=== PATIENT | female | born 1990 ===

== ENCOUNTER 2024-06-21 14:46 | Outpatient (CLI) | payer OTHER, SELFPAY ==
--- NOTE | ~2024-06-21 | US_ITS ---
EXAMINATION: US pelvic complete INDICATION: Missing IUD strings Comparison:No prior studies for comparison. TECHNIQUE: Multiple transabdominal sonographic images of the pelvis performed. FINDINGS: The uterus measures 7.1 x 2.6 x 4.5 cm. The endometrial complex measures 0.55 cm. IUD is pr esent in the endometrium. The right ovary measures 2.3 x 1.6 x 2.4 cm and the left ovary measures 2.4 x 3.7 x 2.0 cm. There is a left ovarian cyst measuring 2.1 cm. There are small follicles in each ovary. Normal doppler signal in both ovaries. There is no free fluid in the pelvis. There are no abnormal masses seen on either side. IMPRESSION: 1. IUD present in the endometrium. 2: Left ovarian cyst measuring 2.1 cm. Reviewed, dictated and finalized at location B. INSPECTOR
== END 2024-06-21 14:47 | disposition home or self-care (01) ==
LOC: MICIMG 14:48
PROVIDERS: PCP Advanced Practice Midwife; Visit Provider Advanced Practice Midwife
DX: T83.32XA Displacement of intrauterine contraceptive device, initial encounter (principal); N83.202 Unspecified ovarian cyst, left side
CPT/HCPCS: 76856